=== PATIENT | female | born 2005 | race Caucasian/White ===

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

== ENCOUNTER 2025-01-04 17:31 | Day surgery (SDC) | payer BC, SELFPAY ==
--- NOTE | 2025-01-04 14:45 | CRLHL7_ITS ---
For Patients: As a result of the Century Cures Act, medical imaging exams and procedure reports are released immediately into your electronic medical record. You may view this report before your referring provider. If you have questions, please contact your health care provider. INDICATION: hemorrhage. ? Retained products in the anterior aspect of the placenta COMPARISON: Obstetric ultrasound on November 29, 2024 TECHNIQUE: Limited pelvic ultrasound, transvaginal approach, utilizing grayscale and color Doppler FINDINGS: The uterus demonstrates overall normal echogenicity. No uterine masses. The endometrial stripe measures 0.8 cm in double thickness. No endometrial masses. Minimal region of heterogeneous echogenicity of the anterior endometrium which shows minimal blood flow on color Doppler, suggestive of minimal retained products of conception. The cervix is normal. No free fluid. IMPRESSION: Minimal region of heterogeneous echogenicity of the anterior endometrium which shows minimal blood flow on color Doppler, suggestive of minimal retained products of conception. The remainder of the examination is unremarkable. Dictated by Sheldon Monreal MD @ 01/04/2025 3:37:16 PM (Electronically Signed)
[2025-01-04] MEDS: DOXYCYCLINE HYCLATE 200 MG in 0.9 % SODIUM CHLORIDE 250 ml 250 ML 250 MG IVPB (18:00)
[2025-01-04] MEDS: LACTATED RINGERS 1000 ML 1,000 ML 125 ML IV (18:00)
--- NOTE | 2025-01-04 18:14 | SUR.OPER ---
Patient positioned supine on OR #4 bed for the induction. Pt. legs then moved into the lithotomy position for the procedure. Perioperative team supported arms bilaterally on arm boards. ? Final approval of positioning by surgeon.
[2025-01-04] MEDS: SILVER NITRATE APPLICATOR 1 EACH STICK..EA. 2 EACH TOPICAL (18:20)
--- NOTE | 2025-01-04 18:36 | P.GYNPRC_ITS ---
Procedure Note Date of procedure: 01/04/25 Will [facility] bill your pro fee for this procedure?: Yes Pre-op diagnosis: Suspected retained placenta 5 weeks after spontaneous vaginal Post-op diagnosis: Same Procedure: Suction uterine curettage Anesthesia: MAC and local Complications: None Surgeon: Do Allison MD Estimated blood loss (mL): 10 IV fluids (mL): 600 Urine Output (mL): 50 Pathology: specimen obtained, sent to pathology (Products of conception) Condition: stable Disposition: floor Findings: 1. On exam under anesthesia, vagina and cervix were normal in appearance. Uterus was soft, mobile, anteverted, consistent in size with 6 weeks gestation. No palpable adnexal masses. 2. Small amount of suspected products of conception obtained with suction curettage Procedure Description: Procedure in detail: Patient was taken to the operating with IV running. She had received a single IV dose of doxycycline in preoperative prophylaxis. She was placed in dorsal lithotomy position. Monitored anesthesia care was administered. She was prepped and draped in the usual sterile fashion. Her bladder was straight catheterized. Exam under anesthesia was performed for the above-noted findings. Speculum was inserted. Cervix was grasped along its anterior lip with a single toothed tenaculum. Paracervical block was performed with a total of 10 mL of 1% lidocaine. The cervix was serially dilated to 10 [place]. A size 8 rigid suction cannula was then passed through the cervix to the uterine fundus. Suction was applied, and the suction cannula was withdrawn along the path of insertion. This was repeated 3 more times, without obvious return of products of conception after the first pass. Thereafter, gentle sharp curettage was performed in the anterior fundus, where suspected retained products were noted on imaging, and a gritty texture was noted. Procedure was deemed complete. The tenaculum was removed from the anterior lip the cervix, and hemostasis was achieved with silver nitrate. The speculum was then removed from the vagina. Patient tolerated procedure well and was taken recovery area in stable condition.
[2025-01-04 18:40] VITALS: BP 105/59; PULSE 51; RESP 14; TEMP 36.3; O2SAT 100
--- NOTE | 2025-01-04 18:48 | P.ANES_ITS ---
Anesthesia Charges Start Date/Time Anesthesia Start Date: 01/04/25 Anesthesia Start Time: 17:57 Stop Date/Time Anesthesia Stop Date: 01/04/25 Anesthesia Stop Time: 18:37 Summary Emergency: WOOD STAINER Coding CPT Codes CPT Codes: ANESTH INC/MISSED AB PROC - 24823 ([id number]) P1 - NORMAL HEALTHY PATIENT, QZ - WOOD STAINER SVC W/O CITY BUS DRIVER BY Additional Codes: Summary - Emergency: WOOD STAINER ([id number])
--- NOTE | 2025-01-04 18:48 | W.ANESCHARGE ---
Anesthesia Charges Start Date/Time Anesthesia Start Date: 01/04/25 Anesthesia Start Time: 17:57 Stop Date/Time Anesthesia Stop Date: 01/04/25 Anesthesia Stop Time: 18:37 Summary Emergency: QUILLER OPERATOR Coding CPT Codes CPT Codes: ANESTH INC/MISSED AB PROC - 07942 ([id number]) P1 - NORMAL HEALTHY PATIENT, QZ - QUILLER OPERATOR SVC W/O SOLUTIONS SPECIALIST BY Additional Codes: Summary - Emergency: QUILLER OPERATOR ([id number])
[2025-01-04] MEDS: LIDOCAINE 1 % PF 30 ML 10 ML INJECTION (18:51)
[2025-01-04 19:00] VITALS: BP 103/72; PULSE 52; RESP 14; TEMP 36.3; O2SAT 100
[2025-01-04 19:15] VITALS: BP 110/74; PULSE 69; RESP 14; TEMP 36.6; O2SAT 98
[2025-01-04 19:30] VITALS: BP 111/64; PULSE 65; RESP 16; TEMP 36.6; O2SAT 99
[2025-01-04] MEDS: DOXYCYCLINE HYCLATE 100 MG 200 MG PO (19:46)
--- NOTE | 2025-01-04 21:51 | PC.NURSE ---
End of shift report: . VSS. Tolerating regular diet. Denies nausea. Bowel sounds active. Pt rates pain from a 0-6/10, pt states pain improvement after scheduled Toradol. Pt is ind in room. IV removed, tip intact. Discharge instructions gone over with patient and significant other utilizing the in-person advertiser. Discharge instructions signed, belongings are with the patient.
== END 2025-01-04 21:05 | disposition home or self-care (01) ==
LOC: SS 17:32 → MEDSURG 17:33
PROVIDERS: Visit Provider Obstetrics & Gynecology
PROC: (CPT 59160; principal; 2025-01-04 17:45)
DX: O72.0 Third-stage hemorrhage (principal); Z71.0 Person encountering health services to consult on behalf of another person; Z60.3 Acculturation difficulty
CPT/HCPCS: 59160; 01965; 36415; 76830; 86850; 86900; 86901; 99140; T1013; A9270; J0330; J1100; J1885; J2003; J2250; J2405; J2704; J3010; J3490; J7050; J7120